=== PATIENT | female | born 1990 | race African-American/Black ===

== ENCOUNTER 2017-05-22 10:33 | Emergency (ER) | payer MEDICAID ==
[~2017-05-22] VITALS: Ht 167.6 cm; Wt 75.0 kg
[2017-05-22] MEDS ORDERED: SODIUM CHLORIDE 0.9% 1,000 ML IV ONE (10:54)
[2017-05-22 11:18] LABS: CLARITY URINE CLEAR (CLEAR); COLOR URINE YELLOW (YELLOW); KETONES URINE 1+ (NEGATIVE); LEUKOCYTE ESTERASE URINE TRACE (NEGATIVE); NITRITE URINE NEGATIVE (NEGATIVE); OCCULT BLOOD URINE NEGATIVE (NEGATIVE); PH URINE 6.5 (4.5-8.0); PROTEIN URINE NEGATIVE (NEGATIVE); SPECIFIC GRAVITY URINE 1.024 (1.005-1.030)
[2017-05-22 11:18] LABS: BASOPHILS % 0.4 % (0.0-2.0); EOSINOPHILS % 0.6 % (0.0-5.0); HEMATOCRIT. 31.3 % (36.0-48.0); LYMPHOCYTES % 23.3 % (20.0-50.0); MEAN CORPUSCULAR VOLUME 78.5 fL (81.0-99.0); MEAN PLATELET VOLUME 8.6 fl (7.4-10.4); MONOCYTES % 9.1 % (2.0-8.0); NEUTROPHILS % 66.6 % (40.0-76.0); PLATELET 165 x1000/uL (130-400); RED BLOOD CELL COUNT 3.99 mill/uL (4.2-5.4); RED CELL DISTRIBUTION WIDTH 16.7 % (11.6-14.6)
[2017-05-22 11:23] LABS: BG BASE EXCESS -5.9 mmol/L (-2.0-2.0); BG CARBOXYHEMOGLOBIN 0.3 % (0.5-1.5); BG DEOXYHEMOGLOBIN 6.1 % (0.0-5.0); BG FRACTION INSPIRED OXYGEN 21; BG HCO3 ACT 18.3 mmol/L (22.0-26.0); BG METHEMOGLOBIN 0.3 % (0.0-1.5); BG OXYGEN SATURATION 93.9 % (92.0-98.5); BG OXYHEMOGLOBIN 93.3 % (94.0-97.0); BG PCO2 31.7 mmHg (35.0-45.0); BG PO2 76.7 mmHg (75.0-100.0); BG SAMPLE SITE RIGHT BRACHIAL; BG TOTAL HEMOGLOBIN 10.2 g/dL (12.0-18.0); BG VENT MODE ROOM AIR
[2017-05-22 11:23] LABS: AMMONIA < 10 uMol/L (<32); CHLORIDE 106 mEq/L (98-107); ETHANOL BLOOD 34 mg/dL
[2017-05-22 11:24] LABS: HCG SCREEN NEGATIVE
[2017-05-22 11:30] LABS: INR 1.1; PROTHROMBIN TIME 11.1 sec (9.4-11.6)
[2017-05-22 12:05] LABS: *AMPHETAMINES SCREEN URINE NEGATIVE (NEGATIVE); *BARBITURATES SCREEN URINE NEGATIVE (NEGATIVE); *BENZODIAZEPINES SCREEN URINE NEGATIVE (NEGATIVE); METHADONE URINE SCREEN NEGATIVE (NEGATIVE); OPIATES URINE SCREEN NEGATIVE (NEGATIVE); PHENCYCLIDINE URINE SCREEN NEGATIVE (NEGATIVE)
[2017-05-22 12:15] LABS: *COCAINE SCREEN URINE PRESUMTIVE POSITIVE (NEGATIVE)
[2017-05-22 12:16] LABS: CANNABINOID URINE SCREEN PRESUMTIVE POSITIVE (NEGATIVE)
[2017-05-22] MEDS ORDERED: CEFTRIAXONE 1 G PREMIX 50 ML IV ONE (12:30)
[2017-05-22] MEDS ORDERED: ONDANSETRON HCL 4MG/2ML VIAL IV ONE (14:15)
[2017-05-22 15:49] VITALS: BP 140/71
== END 2017-05-22 16:20 | disposition home or self-care (01) ==
LOC: ER 10:38
DX: G92 Toxic encephalopathy (principal); N39.0 Urinary tract infection, site not specified; F10.129 Alcohol abuse with intoxication, unspecified; F12.90 Cannabis use, unspecified, uncomplicated; F14.90 Cocaine use, unspecified, uncomplicated; R03.0 Elevated blood-pressure reading, without diagnosis of hypertension; R94.31 Abnormal electrocardiogram [ECG] [EKG]
CPT/HCPCS: 36415; 36600; 70450; 71045; 80053; 80305; 80307; 80329; 81003; 82140; 82375; 82805; 84703; 85025; 85610; 85730; 93005; 96361; 96365; 96375; 99285; G0482; J0696; J2405; J7030; Z7610

== ENCOUNTER 2021-11-24 04:23 | Emergency (ER) | payer MEDICAID ==
[~2021-11-24] VITALS: Ht 157.5 cm; Wt 78.0 kg
[2021-11-24 04:31] VITALS: BP 142/85
[2021-11-24] MEDS ORDERED: IBUPROFEN 600MG TABLET PO ONE (08:15)
[2021-11-24] MEDS ORDERED: IBUP-2029 MT (08:25)
== END 2021-11-24 09:00 | disposition home or self-care (01) ==
LOC: ER 04:23
DX: R51.9 Headache, unspecified (principal)
CPT/HCPCS: 29130; 81025; 99283